=== PATIENT | female | born 1980 | race Caucasian/White ===

== ENCOUNTER 2022-06-07 12:54 | Emergency (ER) | payer MEDICAID ==
[~2022-06-07] VITALS: Ht 157.5 cm; Wt 54.5 kg
[2022-06-07] MEDS ORDERED: LEVE250T4 PO (13:04)
[2022-06-07] MEDS ORDERED: DiphenhydrAMINE HCL 50 MG/ML VIAL IVP ONE (14:15)
[2022-06-07] MEDS ORDERED: SODIUM CHLORIDE 0.9% 1,000 ML IV ONE (14:15)
[2022-06-07] MEDS ORDERED: MORPHINE SULFATE 2 MG/ML SYRINGE IVP ONE (14:15)
[2022-06-07] MEDS ORDERED: METOCLOPRAMIDE HCL 5 MG/ML 2 ML VIAL IVP ONE (14:15)
[2022-06-07 15:46] VITALS: BP 94/56
== END 2022-06-07 16:19 | disposition home or self-care (01) ==
LOC: EMS 12:59
DX: S06.5XAA Traumatic subdural hemorrhage with loss of consciousness status unknown, initial encounter (principal); R51.9 Headache, unspecified; R56.9 Unspecified convulsions; Z90.49 Acquired absence of other specified parts of digestive tract; X58.XXXA Exposure to other specified factors, initial encounter; Y93.89 Activity, other specified; Y92.89 Other specified places as the place of occurrence of the external cause; Y99.8 Other external cause status
CPT/HCPCS: 99285; 96374; 70450; 96375; 96361; J1200; J2765; J2270; J7030

== ENCOUNTER → 2024-05-16 | Emergency (ER) | payer MEDICAID, OTHER ==
[~2024-05-16] VITALS: Ht 157.5 cm; Wt 59.1 kg
[~2024-05-16] MED LIST: ACET-66 PO; GUAIFDM PO; IBUP-1554 PO; LEVE250T81 PO
[2024-05-16 20:56] VITALS: BP 115/78; PULSE 102; RESP 16; TEMP 98.8; O2SAT 100
[2024-05-16 21:07] LABS: COVID AG,FIA SOURCE NASAL SWAB
[2024-05-16] MEDS: ACETAMINOPHEN 500 MG TABLET PO ONE (21:07)
[2024-05-16 21:28] LABS: BASOPHILS % (AUTO) 0.4 % (0.0-2.0); HEMOGLOBIN 12.8 g/dL (12.0-16.0); LYMPHOCYTES # (AUTO) 1.4 K/uL (1.0-4.8); LYMPHOCYTES % (AUTO) 17.1 % (22.0-44.0); MEAN CORPUSCULAR HEMOGLOBIN 28.8 pg (26.0-34.0); MEAN CORPUSCULAR HGB CONC 32.8 G/dL (31.0-37.0); MEAN CORPUSCULAR VOLUME 88 fL (80-100); MONOCYTES # (AUTO) 0.7 K/uL (0.1-1.0); MONOCYTES % (AUTO) 8.6 % (2.0-9.0); NEUTROPHILS # (AUTO) 6.1 K/uL (1.8-7.7); NEUTROPHILS % (AUTO) 72.9 % (40.0-70.0); PLATELET COUNT (AUTO) 246 K/uL (150-450); RED BLOOD CELL COUNT(AUTO) 4.44 MIL/uL (4.00-5.20); RED CELL DISTRIBUTION WIDTH 13.8 % (11.5-14.5); WHITE BLOOD COUNT (AUTO) 8.4 K/uL (4.5-11.0)
[2024-05-16 21:37] LABS: ANION GAP 5 mmol/L (8-16); CALCIUM, TOTAL 9.1 mg/dL (8.8-10.5); CARBON DIOXIDE 29 mmol/L (22-29); CHLORIDE 107 mmol/L (98-107); CREATININE 0.65 mg/dL (0.60-1.30); GLOMERULAR FILTR. RATE CALC > 60 mL/min (>60); GLUCOSE,RANDOM 88 mg/dL (70-110); POTASSIUM 3.9 mmol/L (3.5-5.1); SODIUM SERUM 141 mmol/L (136-145); UREA NITROGEN, BLOOD 10 mg/dL (7-18)
[2024-05-16 21:43] LABS: INFLUENZA TYPE A NEGATIVE FOR TYPE A (NEGATIVE); INFLUENZA TYPE B NEGATIVE FOR TYPE B (NEGATIVE); SARS-COV2 (COVID) ANTIGEN,FIA Negative (Negative)
== END | disposition still patient (30) ==
LOC: EMS 20:38
DX: J20.9 Acute bronchitis, unspecified (principal); Z90.49 Acquired absence of other specified parts of digestive tract; Z79.899 Other long term (current) drug therapy; Z20.822 Contact with and (suspected) exposure to COVID-19
CPT/HCPCS: 80048; 85025; 87804; 99283